=== PATIENT | male | born 1955 | race African-American/Black ===

== ENCOUNTER 2020-12-04 13:43 | Outpatient (RCR) | payer MEDICARE, BC, SELFPAY | END 2021-01-14 09:10 | disposition home or self-care (01) | LOC: HO.WCC 13:43 | PROVIDERS: PCP Internal Medicine; Visit Provider Surgery | DX: T24.312D Burn of third degree of left thigh, subsequent encounter (principal); T31.0 Burns involving less than 10% of body surface | CPT/HCPCS: 16020; 16025; 99213 ==

== ENCOUNTER → 2021-01-01 09:05 | Outpatient (BNVA) | payer MEDICARE, BC, SELFPAY | PROVIDERS: PCP Internal Medicine; Visit Provider Surgery | DX: T24.312A Burn of third degree of left thigh, initial encounter (principal); Y92.094 Garage of other non-institutional residence as the place of occurrence of the external cause | CPT/HCPCS: 99202 ==

== ENCOUNTER 2021-01-12 06:20 | Inpatient (IN) | payer MEDICARE, BC, SELFPAY ==
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
[2021-01-12] VITALS (11 sets, daily range): BP systolic 119–171; BP diastolic 65–82; PULSE 70–98; RESP 14–20; TEMP 36.1–36.6; O2SAT 95–99; BMI 30.7
[2021-01-12] MEDS: Lactated Ringers 1,000 ML 100 ML IVCONT ×2 (07:00→19:53)
[2021-01-12 07:03] LABS: COVID-19 Test Negative (Negative)
--- NOTE | 2021-01-12 07:07 | MHC.SHP ---
Pre-Procedural Eval Section A The patient is an INPATIENT: No Changes since office visit: Yes Patient answered all questions; No Cold of Flu in the past 2 weeks, No New Medical Problems and No Changes in Medication The History & Physical has been completed within 30 days and I have reviewed it.: Yes Section B Chief Complaint: S/P SKINGRAFT,FULL THICKNESS Allergies: Allergies Allergy/AdvReac Type Severity Reaction Status Date / Time No Known Allergies Allergy Verified 01/01/21 09:28 Plan Diagnosis/Plan: Unchanged I have reviewed the history and physical and performed a pertinent physical examination on my patient. No changes have occurred unless specified.
[2021-01-12 07:08] LABS: Hematocrit 46.4 % (42-52); Mean Corpuscular HGB Conc 32.3 g/dl (31.0-36.0); Mean Corpuscular Hemoglobin 28.8 pg (27.0-33.0); Mean Corpuscular Volume 89.1 fL (80-98); Mean Platelet Volume 9.2 fL (9.4-12.4); Platelet Count 228 X10*3/uL (160-400); Red Blood Count 5.21 X10*6/uL (4.60-5.80); Red Cell Distribution Width 13.1 % (11.0-16.0); White Blood Count 5.9 X10*3/uL (4.8-10.8)
[2021-01-12 07:38] LABS: Alanine Aminotransferase 42 U/L (0-40); Albumin Level 4.2 g/dL (3.5-5.0); Alkaline Phosphatase 85 U/L (39-117); Anion Gap 11 (12-20); Aspartate Amino Transferase 21 U/L (5-37); Bilirubin Total 0.6 mg/dL (0.0-1.0); Blood Urea Nitrogen 15 mg/dL (9-16); Calcium 9.4 mg/dL (8.4-10.2); Carbon Dioxide 28 mmol/L (22-29); Chloride 105 mmol/L (96-108); Estimated Glomerular Filt Rate 53; Glucose Fasting 106 mg/dL (60-99); Potassium 4.1 mmol/L (3.3-5.1); Sodium 140 mmol/L (135-145)
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
[2021-01-12] MEDS: Acetaminophen 325 MG TABLET 650 MG PO (15:26)
[2021-01-12] MEDS: Zolpidem Tartrate 5 MG TABLET PO (20:53)
[2021-01-13] VITALS (7 sets, daily range): BP systolic 116–147; BP diastolic 58–77; PULSE 54–98; RESP 18–20; TEMP 35.8–36.9; O2SAT 96–98
[2021-01-13] MEDS: Lactated Ringers 1,000 ML 100 ML IVCONT (04:55)
[2021-01-13] MEDS: oxyCODONE HCl Immed Release 5 MG TABLET PO ×2 (06:58→14:12)
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
--- NOTE | 2021-01-13 09:18 | MHC.CM.PN ---
IMM 01/13/21, EMR REVIEWED, PT ADMITTED W/SKIN CARRANZA AND LEFT THIGH SKIN GRAFT W/[facility]OUND [facility], CM MET W/PT WHO REPORTS HE LIVES W/ AND IS INDEPENDENT W/CARE, NO DME AND NO HOME SERVICES. PT VERIFIES PCP AND PHARMACY. PT DENIES HAVING AN HCP AND WOULD LIKE TO COMPLETE ONE PRIOR TO D/C. D/C PLAN: HOME W/[facility] TO MANAGE [facility]OUND [facility], FAMILY FOR TRANSPORT. PCP: IVAN COYLE
--- NOTE | 2021-01-13 10:18 | HO.POSTANES ---
Post Anesthesia Evaluation Post Anesthesia Evaluation Vital Signs: Vital Signs Temp Pulse Resp BP Pulse Ox 01/13/21 07:22 97.2 F 76 19 147/66 H 98 01/13/21 04:05 97.0 F 98 20 119/66 97 01/13/21 00:20 98.4 F 82 18 116/67 97 Anesthesia: General Mental Status: Awake Pain Control: Satisfactory Nausea/Vomiting: None Hydration: Adequate Anesthesia-Related Issues: No Anes. Related Issues
[2021-01-13] MEDS: 0.9 % Sodium Chloride Flush 3 ML SYRINGE IVFLUSH ×2 (15:37→20:06)
[2021-01-14 03:47] VITALS: BP 138/73; PULSE 66; RESP 18; TEMP 36.9; O2SAT 98
[2021-01-14 07:37] VITALS: BP 143/71; PULSE 58; RESP 17; TEMP 36.5; O2SAT 95
[2021-01-14] MEDS: oxyCODONE HCl Immed Release 5 MG TABLET PO ×2 (07:41→14:24)
[2021-01-14] MEDS: 0.9 % Sodium Chloride Flush 3 ML SYRINGE IVFLUSH (07:43)
--- NOTE | 2021-01-14 08:31 | MHC.CM.PN ---
Addendum entered by Elvira Tang RN 01/14/21 16:01: PER SURGEON PT WILL NEED WOUND VAC DRESSING CHANGED 3 X WK, SETTING IS 125 CONTINUOUS AND DIMENSIONS ARE 12X7CM, [facility] AWARE AND WILL START CARE Tuesday01/16/21. Original Note: [facility] CONTACTED [facility] REP ERMELINDA Jones AT 8:20AM [phone], PER ERMELINDA HE DID RECEIVE FAXED INFORMATION YESTERDAY 01/14/21, PER ERMELINDA HE WILL CALL CM ONCE AUTH GOES THROUGH, PLAN FOR DELIVERY TO [facility] PRIOR TO PT DISCHARGING. D/C PLAN: HOME TODAY W/[facility] FOR [facility] WOUND VAC MANAGEMENT, PER SURGEON [facility], FAMILY TO TRANSPORT
[2021-01-14 11:09] VITALS: BP 123/70; PULSE 68; RESP 18; TEMP 36.3; O2SAT 96
[2021-01-14] MEDS: Acetaminophen 325 MG TABLET 650 MG PO (13:19)
--- NOTE | 2021-01-14 16:11 | W.MHC.F2F ---
Service Date Service Date: 01/14/21 Encounter Date of encounter: 01/14/21 Encounter: Dressing changes of wound vac and donor site Reasons for Services Signs and symptoms assessed: Graft is very well adherent, new wound vac applied. Donor site has Xeroform applied Reason for prison: wound care and postoperative assessment and/or care MD Overseeing Care: Brian Eason Homebound: Leaving the home is medically contraindicated at this time without the asist of a device and/or another person due th the listed conditions above and below. Reason homebound: pain with ambulation and unable to drive Homebound supporting statement: Recent surgery for skin graft to the left posterior thigh Certification: Based on the above findings, I certify that this patient is confined to the home and needs intermittent prison care, physical therapy and/or speech therapy, or continues to need occupational therapy. The patient is under my care, and I have initiated the establishment of the plan of care. The patient will be followed by a physician who will periodically review the plan of care.
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
== END 2021-01-14 16:45 | disposition home health service (06) | DRG 929 ==
LOC: HO.SSSA 06:25 → HO.S3 09:25
PROVIDERS: Nurse Practitioner; Admitting Provider Surgery; PCP Internal Medicine; Visit Provider Surgery
PROC: 0HRJX74 Replacement of Left Upper Leg Skin with Autologous Tissue Substitute, Partial Thickness, External Approach (ICD-10-PCS; CPT 15100; principal; 2021-01-12 07:30)
DX: T24.312A Burn of third degree of left thigh, initial encounter (principal); Z79.899 Other long term (current) drug therapy; T31.0 Burns involving less than 10% of body surface; X16.XXXA Contact with hot heating appliances, radiators and pipes, initial encounter; Z20.822 Contact with and (suspected) exposure to COVID-19; Y93.9 Activity, unspecified; Y92.008 Other place in unspecified non-institutional (private) residence as the place of occurrence of the external cause; Y99.9 Unspecified external cause status
CPT/HCPCS: 15100; 36415; 80053; 85027; 87635; 99024; J0690; J1100; J1170; J2250; J2405; J3010

== ENCOUNTER → 2021-01-23 10:23 | Outpatient (BNVA) | payer MEDICARE, BC, SELFPAY | PROVIDERS: PCP Internal Medicine; Visit Provider Surgery | DX: T24.302D Burn of third degree of unspecified site of left lower limb, except ankle and foot, subsequent encounter (principal) | CPT/HCPCS: 99212 ==

== ENCOUNTER → 2021-02-13 09:51 | Outpatient (BNVA) | payer MEDICARE, BC, SELFPAY | PROVIDERS: PCP Internal Medicine; Visit Provider Surgery | DX: Z09 Encounter for follow-up examination after completed treatment for conditions other than malignant neoplasm (principal); Z87.2 Personal history of diseases of the skin and subcutaneous tissue | CPT/HCPCS: 99212 ==

== ENCOUNTER → 2021-03-31 13:26 | Outpatient (BNVA) | payer MEDICARE, BC, SELFPAY | PROVIDERS: PCP Internal Medicine; Visit Provider Surgery | DX: T24.302D Burn of third degree of unspecified site of left lower limb, except ankle and foot, subsequent encounter (principal) | CPT/HCPCS: 99212 ==

== ENCOUNTER → 2021-08-06 14:00 | Outpatient (BNVA) | payer MEDICARE, BC, SELFPAY | PROVIDERS: PCP Internal Medicine; Visit Provider Surgery | DX: T24.302D Burn of third degree of unspecified site of left lower limb, except ankle and foot, subsequent encounter (principal) | CPT/HCPCS: 99212 ==

== ENCOUNTER → 2021-09-03 10:00 | Outpatient (BNVA) | payer MEDICARE, BC, SELFPAY | PROVIDERS: PCP Internal Medicine; Visit Provider Surgery | DX: T24.302D Burn of third degree of unspecified site of left lower limb, except ankle and foot, subsequent encounter (principal) | CPT/HCPCS: 99212 ==

== ENCOUNTER → 2022-08-10 09:19 | Outpatient (BNVA) | payer MEDICARE, BC, SELFPAY | PROVIDERS: PCP Internal Medicine; Visit Provider Surgery | DX: L91.0 Hypertrophic scar (principal); T24.302D Burn of third degree of unspecified site of left lower limb, except ankle and foot, subsequent encounter | CPT/HCPCS: 99212 ==

== ENCOUNTER 2022-09-06 08:34 | Day surgery (SDC) | payer MEDICARE, BC, SELFPAY ==
[2022-09-01 14:14] VITALS: BMI 29.9
[2022-09-06] VITALS (18 sets, daily range): BP systolic 107–161; BP diastolic 56–99; PULSE 61–89; RESP 14–18; TEMP 36.2–36.7; O2SAT 94–99
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
[2022-09-06] MEDS: Lactated Ringers 1,000 ML 100 ML IVCONT ×3 (09:09→19:24)
--- NOTE | 2022-09-06 11:05 | P.OP_ITS ---
Operative Note Operative Note Date of Service: 09/06/22 Narrative: Preoperative diagnosis:Keloid left posterior thigh Postoperative diagnosis:same Procedure:Revision left posterior calf skin graft with exision of keloid Surgeon: Brian Eason MD Hop Separator: Renee Nicole PA-C Anesthesia:General LMA Indications for procedure: 67-year-old male patient with a previous done to the posterior left calf status post split-thickness skin graft. The graft is well healed however the surrounding margins developed a keloid. He presents today for revision of the skin graft with excision of the surrounding keloid. Operative findings: Intact skin graft in the posterior left calf with surrounding heaped up margins suggestive of a keloid. Pre-excision: Post-excision: Specimen:Keloid left posterior calf Estimated blood loss:20 mls Complications:none Procedure details: Patient was brought to the OR placed in a supine position. After administering general anesthesia the patient was placed in a right lateral decubitus position. Patient's leg was flexed slightly and pillows placed between the leg. The posterior left thigh was prepped with Betadine and draped in a sterile fashion. A surgical time-out was called the consent confirmed. Patient received preoperative antibiotics and Venodyne boots were in place. Local anesthesia consisting of 0.5% Sensorcaine with 1% lidocaine with epinephrine was then infiltrated surrounding the lesion. The keloid surrounding the skin graft was then excised using a 15 blade scalpel to excise circumferentially the keloid. The incision was deepened into the subcutaneous tissue using electrocautery. Hemostasis was assured using electrocautery. With a keloid was completely excised the lesion was sent to pathology for further examination. Hemostasis was again assured using electrocautery. Four quadrants of the skin were then reapproximated using towel clamps. The dermis was then reapproximated circumferentially using interrupted 3-0 Polysorb sutures. Skin was then closed using skin monica. Sterile dressings including Adaptic, fluff gauze and Tegaderm were then applied. The patient tolerated the procedure well. Sponge, instrument, and needle counts reported as correct. The patient was transferred to PACU in stable condition.
[2022-09-06] MEDS: Acetaminophen 325 MG TABLET 650 MG PO ×2 (12:06→19:30)
[2022-09-06] MEDS: oxyCODONE HCl Immed Release 5 MG TABLET PO ×2 (12:06→18:01)
--- NOTE | 2022-09-06 12:43 | PHA.MEDREC ---
Pharmacy Consult ? Medication Reconciliation Pharmacy has completed the medication reconciliation. Reviewed med rec done by nursing
--- NOTE | 2022-09-06 15:24 | PC.NURSE ---
Pt arrived on unit at 1400. assit from stretcher to bed. bed locked 3 siderails up bed alarm on. call juan within reach.
[2022-09-06] MEDS: traZODone HCL 100 MG TABLET PO (22:58)
[2022-09-07 04:00] VITALS: BP 109/53; PULSE 50; RESP 18; TEMP 36.6; O2SAT 98
[2022-09-07] MEDS: Lactated Ringers 1,000 ML 100 ML IVCONT (05:33)
--- NOTE | 2022-09-07 07:04 | HO.POSTANES ---
Post Anesthesia Evaluation Post Anesthesia Evaluation Vital Signs: Vital Signs Temp Pulse Resp BP Pulse Ox O2 Del Method 09/07/22 04:00 97.9 F 50 18 109/53 L 98 Room Air 09/06/22 19:41 97.3 F 70 18 107/56 L 94 Room Air Anesthesia: General Mental Status: Awake Pain Control: Satisfactory Nausea/Vomiting: None Hydration: Adequate Anesthesia-Related Issues: No Anes. Related Issues
[2022-09-07 07:40] VITALS: BP 145/69; PULSE 51; RESP 16; TEMP 36.4; O2SAT 96
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
[2022-09-07] MEDS: oxyCODONE HCl Immed Release 5 MG TABLET PO (08:09)
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
--- NOTE | 2022-09-07 11:00 | MHC.CM.PN ---
IMM 09/07/22, EMR REVIEWED, CM MET W/PT WHO IS A&OX4, PT REPORTS HE IS INDEP W/ALL CARE, PT DENIES USE OF DME/HOME SERVICES, PT REPORTS HE FEELS READY FOR D/C TODAY AND WILL TRANSPORT. PT VERIFIES PFIZER X4, PCP IVAN COYLE AND HCP IS AMY BEAVERS [phone], COPY REQUESTED. D/C HOME TODAY NO SERVICES W/FAMILY FOR TRANSPORT
--- NOTE | 2022-09-07 11:08 | PC.NURSE ---
PT DISCHARGED. IV REMOVED. PT STATES UNDERSTANDING OF DISCHARGE INSTRUCTIONS AND AGREES WITH DISCHARGE PLAN
== END 2022-09-07 11:10 | disposition home or self-care (01) ==
LOC: HO.SSS 08:34 → HO.S3 13:45
PROVIDERS: PCP Internal Medicine; Visit Provider Surgery
PROC: (CPT 11406; principal; 2022-09-06 10:50)
DX: L91.0 Hypertrophic scar (principal); L90.5 Scar conditions and fibrosis of skin; T24.31 Burn of third degree of thigh; T79.8XXS Other early complications of trauma, sequela; X08.8XXS Exposure to other specified smoke, fire and flames, sequela; D86.9 Sarcoidosis, unspecified; Z23 Encounter for immunization
CPT/HCPCS: 11406; 12035; 88305; 90471; 90686; 97161; J0690; J1100; J1170; J2250; J2405; J2795; J3010

== ENCOUNTER → 2022-09-14 09:35 | Outpatient (BNVA) | payer MEDICARE, BC, SELFPAY | PROVIDERS: PCP Internal Medicine; Visit Provider Surgery | DX: Z13.89 Encounter for screening for other disorder (principal) | CPT/HCPCS: 99212 ==

== ENCOUNTER → 2022-09-16 09:37 | Outpatient (BNVA) | payer MEDICARE, BC, SELFPAY | PROVIDERS: PCP Internal Medicine; Visit Provider Surgery | DX: Z48.02 Encounter for removal of sutures (principal); Z48.01 Encounter for change or removal of surgical wound dressing | CPT/HCPCS: 99211 ==

== ENCOUNTER → 2022-09-21 09:13 | Outpatient (BNVA) | payer MEDICARE, BC, SELFPAY | PROVIDERS: PCP Internal Medicine; Visit Provider Surgery ==

== ENCOUNTER → 2022-10-11 | Day surgery (SDC) | payer MEDICARE, BC, SELFPAY ==
[2022-10-05 15:06] VITALS: BMI 29.5
--- NOTE | 2022-10-06 | ECG_ITS ---
Test Reason : pre op Blood Pressure : / mmHG Vent. Rate : 087 BPM Atrial Rate : 087 BPM P-R Int : 164 ms QRS Dur : 078 ms QT Int : 352 ms P-R-T Axes : 054 022 034 degrees QTc Int : 423 ms Normal sinus rhythm Normal ECG No previous ECGs available Referred By: Cornelius Green Electronically Signed By:ERMA CALVERT MD
[2022-10-06 14:43] LABS: Hemoglobin 16.1 g/dl (14.0-18.0); Mean Corpuscular HGB Conc 32.9 g/dl (31.0-36.0); Mean Corpuscular Hemoglobin 29.5 pg (27.0-33.0); Mean Corpuscular Volume 89.9 fL (80.0-98.0); Mean Platelet Volume 9.8 fL (9.4-12.4); Platelet Count 234 X10*3/uL (160-400); Red Blood Count 5.45 X10*6/uL (4.60-5.80); Red Cell Distribution Width 13.2 % (11.0-16.0); White Blood Count 7.3 X10*3/uL (4.8-10.8)
[2022-10-06 15:13] LABS: Anion Gap 15 (12-20); Blood Urea Nitrogen 13 mg/dL (9-16); Carbon Dioxide 27 mmol/L (22-29); Chloride 107 mmol/L (96-108); Creatinine Clr Calc Pharmacy 57.8; Estimated Glomerular Filt Rate 52; Glucose Random 119 mg/dL (60-115); Potassium 5.4 mmol/L (3.3-5.1); Sodium 144 mmol/L (135-145)
[2022-10-11 11:28] VITALS: BP 144/66; PULSE 64; RESP 16; TEMP 36.2; O2SAT 97
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
[2022-10-11 11:33] LABS: COVID-19 Test Negative (Negative); IDNOW Serial# 16C4AD1C
[2022-10-11] MEDS: Lactated Ringers 1,000 ML 100 ML IVCONT (11:34)
--- NOTE | 2022-10-11 12:00 | PC.NURSE ---
Patient evaluated by Dr Eason at bedside. Per Dr Eason, case cancelled because surgical area is healed, no surgical intervention needed.
== END ==
PROVIDERS: Anesthesiology; PCP Internal Medicine; Visit Provider Surgery
DX: L91.0 Hypertrophic scar (principal); Z53.29 Procedure and treatment not carried out because of patient's decision for other reasons; T24.302A Burn of third degree of unspecified site of left lower limb, except ankle and foot, initial encounter; Z20.822 Contact with and (suspected) exposure to COVID-19
CPT/HCPCS: 36415; 80048; 85027; 87635; 93005; J0690; J3010

== ENCOUNTER → 2022-10-19 12:55 | Outpatient (BNVA) | payer MEDICARE, BC, SELFPAY | PROVIDERS: PCP Internal Medicine; Visit Provider Surgery | DX: Z13.89 Encounter for screening for other disorder (principal) ==

== ENCOUNTER 2023-07-07 10:44 | Outpatient (AMB) | payer MEDICARE, BC, SELFPAY ==
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
[2023-07-07 10:49] VITALS: BP 133/69; PULSE 59; O2SAT 98; BMI 30.8
== END 2023-07-07 11:24 | disposition home or self-care (01) ==
PROVIDERS: PCP Internal Medicine; Visit Provider Nurse Practitioner Family
DX: G62.9 Polyneuropathy, unspecified (principal); M79.671 Pain in right foot; M79.672 Pain in left foot; R73.03 Prediabetes
CPT/HCPCS: 99204

== ENCOUNTER → 2023-07-07 10:44 | Outpatient (BNVA) | payer MEDICARE, BC, SELFPAY | PROVIDERS: PCP Internal Medicine; Visit Provider Nurse Practitioner Family | DX: M79.671 Pain in right foot (principal); M79.672 Pain in left foot; G62.9 Polyneuropathy, unspecified; R73.03 Prediabetes | CPT/HCPCS: 99202 ==